=== PATIENT | female | born 2000 ===

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

== ENCOUNTER 2018-01-24 23:15 | Emergency (ER) | payer MEDICAID ==
[2018-01-24 23:15] VITALS: BMI 21.6
[2018-01-24 23:22] VITALS: BP 114/77; PULSE 80; RESP 18; TEMP 97.9; O2SAT 99
--- NOTE | 2018-01-24 23:35 | ED PDOC ---
HPI: General Adult Time Seen by Provider: 01/24/18 23:25 Chief Complaint (Nursing): Dental Pain Chief Complaint (Provider): tongue pain History Per: Patient History/Exam Limitations: no limitations Onset/Duration Of Symptoms: Days (2) Current Symptoms Are (Timing): Still Present Additional Complaint(s): 17 y/o female presents for evaluation of pain to right side of tongue x 2 days. Denies fever, toothache, trauma to tongue, swelling to tongue. No medication taken for relief thus far. Patient also complaining of itching to right arm x 3 days, of which she has been applying hydrocortisone cream. Denies lesions, known allergen.and genital area x 3 days. Patient also complaining of genital itching; requesting cream. Denies discharge , dysuria, hematuria, vaginal bleeding. States her last sexual encounter over 3 months ago. Past Medical History Reviewed: Historical Data, Nursing Documentation, Vital Signs Vital Signs: Last Vital Signs Temp 97.9 F 01/24/18 23:20 Pulse 80 01/24/18 23:20 Resp 18 01/24/18 23:20 BP 114/77 01/24/18 23:20 Pulse Ox 99 01/24/18 23:37 - Medical History PMH: No Chronic Diseases - Surgical History Surgical History: No Surg Hx - Family History Family History: States: Unknown Family Hx, Diabetes - Home Medications Home Medications: Ambulatory Orders Medication Instructions Recorded Acyclovir [Zovirax] 400 mg PO TID 7 Days tablet 07/19/16 Ciprofloxacin HCl [Cipro] 250 mg PO BID #6 tab 07/19/16 Acyclovir [Zovirax] 400 mg PO 5XD #50 tablet 04/27/17 Clindamycin [Cleocin] 300 mg PO TID #21 cap 04/27/17 Fluconazole [Diflucan] 150 mg PO QWK #2 tab 04/27/17 Cetirizine HCl [Zyrtec] 10 mg PO DAILY #7 capsule 01/25/18 Fluconazole [Diflucan] 150 mg PO ONCE #1 tab 01/25/18 Ibuprofen [Motrin Tab] 1 tab PO Q6 PRN #15 tab 01/25/18 - Allergies Allergies/Adverse Reactions: Allergies Allergy/AdvReac Type Severity Reaction Status Date / Time No Known Allergies Allergy Verified 01/24/18 23:19 Review of Systems ROS Statement: Except As Marked, All Systems Reviewed And Found Negative ENT: Positive for: Mouth Pain Genitourinary Female: Positive for: Other (itching) Skin: Positive for: Rash Physical Exam - Reviewed Nursing Documentation Reviewed: Yes Vital Signs Reviewed: Yes - Physical Exam Appears: Positive for: Well, Non-toxic, No Acute Distress Head Exam: Positive for: ATRAUMATIC, NORMAL INSPECTION, NORMOCEPHALIC Skin: Positive for: Normal Color, Rash (patchy dry skin flexor aspect right elbow; no lesions, drainage, temp change noted) Eye Exam: Positive for: Normal appearance ENT: Positive for: Normal ENT Inspection Cardiovascular/Chest: Positive for: Regular Rate, Rhythm Respiratory: Positive for: Normal Breath Sounds Gastrointestinal/Abdominal: Positive for: Normal Exam Pelvic Exam: Positive for: External Exam Normal, Speculum Exam Normal, No Cerv. Motion Tender, Discharge (white), Other (exam sleeve baster Gaviota Kennedy RN). Negative for: Active Bleeding, Blood, Cervicitis Back: Positive for: Normal Inspection Extremity: Positive for: Normal ROM Neurologic/Psych: Positive for: Alert, Oriented (x3) - ECG O2 Sat by Pulse Oximetry: 99 - Progress ED Course And Treament: ibuprofen, benadryl PO, urine, cultures Patient educated on findings, discharged with rx ibuprofen, zyrtec, diflucan Advised to continue cortisone cream for arm Follow up PMD 2-3 days Follow up Ceramic Restorer 2-3 days Return precautions given Disposition - Clinical Impression Clinical Impression: Vulvovaginal candidiasis, Tongue pain, Rash and nonspecific skin eruption - Patient ED Disposition Is Patient to be Admitted: No Counseled Patient/Family Regarding: Studies Performed, Diagnosis, Need For Followup, Rx Given - Disposition Disposition: Routine/Home Disposition Time: 00:16 Condition: IMPROVED Prescriptions: Cetirizine HCl [Zyrtec] 10 mg PO DAILY #7 capsule Fluconazole [Diflucan] 150 mg PO ONCE #1 tab Ibuprofen [Motrin Tab] 1 tab PO Q6 PRN #15 tab PRN Reason: Pain, Moderate (4-7) Instructions: Vulvovaginal Yeast Infection, Dermatitis
[2018-01-25] LABS: SQUAMOUS EPITHIAL 8 /hpf (0-5); URINE BACTERIA OCC (<OCC); URINE BILIRUBIN NEGATIVE (NEGATIVE); URINE BLOOD NEGATIVE (NEGATIVE); URINE CLARITY CLOUDY (Clear); URINE COLOR YELLOW (YELLOW); URINE GLUCOSE (UA) NEG (Normal); URINE LEUKOCYTE ESTERASE SMALL Leu/uL (Negative); URINE PROTEIN 30 mg/dL (NEGATIVE); URINE UROBILINOGEN 0.2-1.0 mg/dL (0.2-1.0)
[2018-01-25] MEDS ORDERED: Fluconazole 150 MG TAB PO STA (00:14)
== END 2018-01-25 00:27 | disposition home or self-care (01) ==
LOC: H.ER 23:15
DX: K14.6 Glossodynia (principal); R21 Rash and other nonspecific skin eruption; B37.3 Candidiasis of vulva and vagina

== ENCOUNTER 2018-07-16 11:00 | Emergency (ER) | payer MEDICAID ==
[2018-07-16 12:52] LABS: BASO % 0.5 % (0.0-2.0); EOS % 0.8 % (0.0-4.0); HEMOGLOBIN 10.7 g/dL (12.0-16.0); LYMPH # 0.9 K/uL (1.0-4.3); LYMPH % 15.5 % (20.0-40.0); MEAN CELL VOLUME 78.9 fl (81.0-99.0); MEAN CORPUSCULAR HEMOGLOBIN 25.3 pg (27.0-31.0); MEAN PLATELET VOLUME 9.1 fl (7.2-11.7); MONO # 0.4 K/uL (0.0-0.8); MONO % 7.8 % (0.0-10.0); NEUT # 4.3 K/uL (1.8-7.0); NEUT % 75.4 % (50.0-75.0); NRBC % 0.1 % (0.0-0.0); RBC 4.22 Mil/uL (3.80-5.20); RED CELL DISTRIBUTION WIDTH 16.1 % (11.5-14.5); WHITE BLOOD COUNT 5.7 K/uL (4.8-10.8)
[2018-07-16 13:02] LABS: ALBUMIN 3.7 g/dL (3.5-5.0); ALT/SGPT 19 U/L (9-52); AST/SGOT 35 U/L (14-36); BLOOD UREA NITROGEN 8 mg/dl (7-17); CALCIUM 8.7 mg/dL (8.4-10.2); GFR NON-AFRICAN AMERICAN > 60
[2018-07-16 13:04] LABS: SQUAMOUS EPITHIAL 79 /hpf (0-5); URINE BACTERIA RARE (<OCC); URINE BILIRUBIN SMALL (NEGATIVE); URINE BLOOD NEGATIVE (NEGATIVE); URINE CLARITY CLOUDY (Clear); URINE COLOR AMBER (YELLOW); URINE GLUCOSE (UA) NEG (NEGATIVE); URINE LEUKOCYTE ESTERASE MOD Leu/uL (Negative); URINE PROTEIN 100 mg/dL (NEGATIVE); URINE UROBILINOGEN 0.2-1.0 mg/dL (0.2-1.0)
--- NOTE | 2018-07-16 14:21 | US ---
Date of service: 07/16/2018 PROCEDURE: Obstetrical , limited. HISTORY: 24 wk IUG no previous U/S COMPARISON: None TECHNIQUE: Standard protocol for this study/examination. FINDINGS: Cephalic presentation. Posterior placenta. No evidence of abruption or previa Gestational age derived from LMP 25 weeks 3 days. KATE 10/26/2018. Gestational age derived from the following biometric parameters 25 weeks 1 day. KATE 10/28/2018 Biparietal diameter 6.12 cm Head circumference 22.76 cm Abdominal circumference 20.50 cm Femur length 4.63 cm Estimated weight 776.8 g Calculated cardiac rate 149 beats per min. Closed cervix measuring 3.43 cm IMPRESSION: Twenty-five weeks 1 day live intrauterine gestation. Gestational concordance documented.
[2018-07-16 19:37] VITALS: BP 97/60; PULSE 97; TEMP 97.4
--- NOTE | 2018-07-17 09:21 | OBHP ---
Datetime: 07/16/2018 11:44 IP Adm Impression: , intrauterine IP Admit Plan: Observation/Evaluation; Discharge home Admit Comment, IP Provider: 17 year old at 24.0 weeks (dated on U/S from [facility]) pr esents with dysuria and diarrhea for 2 days duration. care thus far has been in [facility] rmatory records with patient. Previous was at 35/36 weeks, no further complica tions. As per patient she was told she has genital herpes from her original doctor but all other labs were within normal limits. Endorses good movement. Denies contractions, vaginal bleeding, lazara dorous discharge, leaking of fluid from vagina, fever, headache, new-onset edema, difficulty breathin g and nausea. PMD: n/a - [facility] OBHx: x1 @ 35-36 wks EGA PMH: denies Allergies: denies Meds: denies Surgical Hx: denies Family Hx: denies Labs: as per patient: herpes +, remainder wnl (no lab report available) ROS: all other systems reviewed and negative unless noted in HPI PE: Gen: comfortable, NAD Psych: flat affect, slow to answer, cooperative, pleasant Resp: no respiratory distress CV: RRR Abd: no tenderness to palpation Ext: no edema Skin: no rash Back: bilateral CVA tenderness A+P: 17 year old at 24.0 weeks EGA presents with dysuria and diarrhea for 2 days duration. -NST reassuring -CBC wnl, CMP wnl, UA wnl (contaminated) -OB abdominal U/S: 25.1 week IUP, posterior placenta -ED precautions given -Patient recommended to follow-up with primary OBGYN within 1 week Case seen and discussed with Dr Kerrie Devlin PGY1 Pelvic Type - PN: Not Done Extremities - PN: Normal Abdomen - PN: Normal Back - PN: Normal Breast - PN: Not Done Lungs - PN: Normal Heart - PN: Normal Thyroid - PN: Not Done Neurologic - PN: Normal HEENT - PN: Normal General - PN: Normal EGA AdmitDate IP: 24.0 Vital Signs Provider: Reviewed; Within Normal Limits IP Chief Complaint: Maternal discomfort Genitourinary Exam: Not Done DTRs - PN: Normal
== END 2018-07-16 15:36 | disposition home or self-care (01) ==
LOC: H.EROB2 11:00 → H.EROB 11:53 → H.EROB2 15:36
DX: O26.92 Pregnancy related conditions, unspecified, second trimester (principal); R30.0 Dysuria; R19.7 Diarrhea, unspecified; Z3A.24 24 weeks gestation of pregnancy

== ENCOUNTER 2018-09-10 23:29 | Emergency (ER) | payer MEDICAID ==
[2018-09-11 00:36] VITALS: BMI 32.5
[2018-09-11] MEDS ORDERED: Betamethasone Soluspan 30 mg/5mL Inj Susp IM ONE (00:37)
[2018-09-11 01:50] LABS: HEMOGLOBIN 8.8 g/dL (12.0-16.0); MEAN CELL VOLUME 71.3 fl (81.0-99.0); MEAN CORPUSCULAR HEMOGLOBIN 23.2 pg (27.0-31.0); MEAN CORPUSCULAR HGB CONC 32.6 g/dL (33.0-37.0); RBC 3.78 Mil/uL (3.80-5.20); RED CELL DISTRIBUTION WIDTH 17.3 % (11.5-14.5); WHITE BLOOD COUNT 9.6 K/uL (4.8-10.8)
--- NOTE | 2018-09-11 08:26 | OBADHP ---
Datetime: 09/11/2018 00:17 Admit Comment, IP Provider: 20 33.4wk present to [facility] due vag bleed started tonight, Pt report that vag bleeding started after she had intercours. Pt state bleeding is small amount and have used o ne pad which did not get soaked, otherwise patient denies noting any material, contraction or abd deacon n. Allergy: none PCP: [facility] PMH: none PFH: none PSH: none OBGYN 1 premature VD at 33 wk social: denies smoking drug or use 00:31 Assessment and plan 20 33.4wk present to [facility] due vag bleed started tonight, Pt report that vag bleeding started after she had intercours. Most likely post coital bleed. Vitals WNl strip reasuring, some contraction noted Vaginal examination, no active bleeding cervix close Will do CBC/ Type and screen Start on betamethasone dose YSabri PGY1 Case discussed with Dr Sy Addendum: I saw and examined patient at presentation. Patient with postcoital bleeding. No evidence of act zaheer bleeding on sterile speculum exam, but due to blood in vagina plan to continue observation. Mansi ent without contractions and heart tracing category 1. Patient given first dose of steroids an d will check labs. Plan to check ultrasound and cervical length measurement. Discussed plan with haroldo cleary and all patient questions answered. Kerrie Pelvic Type - PN: Adequate Extremities - PN: Normal Abdomen - PN: Normal Back - PN: Normal Breast - PN: Not Done Lungs - PN: Normal Heart - PN: Normal Thyroid - PN: Normal Neurologic - PN: Normal HEENT - PN: Normal General - PN: Normal FHR - Baseline A Provider: 130 Comments, ACOG Physical Exam: heart no extra heart soun lung clear abd non-tender BS+ Cervix no active bleeding, cervix closed Gestation - Est Wks by US: 33.4 Pool Provider: Negative Vital Signs Provider: Reviewed; Within Normal Limits IP Chief Complaint: Vaginal bleeding NICHD Variability Prov Fetus A: Moderate 6-25bpm NICHD Accel Fetus A IP Provider: 15X15 FHR Category Provider Fetus A: Category I NICHD Decel Fetus A IP Provider: None Dilatation, Provider: 0 Genitourinary Exam: Normal EGA AdmitDate IP: 33.3 IP Adm Impression: , intrauterine IP Admit Plan: Observation/Evaluation Datetime: 07/16/2018 11:44 DTRs - PN: Normal
--- NOTE | 2018-09-11 11:07 | US ---
Date of service: 09/11/2018 PROCEDURE: Limited transvaginal examination HISTORY: vaginal bleed COMPARISON: None TECHNIQUE: Transvaginal pelvic ultrasound was performed. FINDINGS: biophysical profile scoring: breathing movements: 2 movements: 2 tones: 2 Amniotic Fluid: 2 Total score: 8 Single live intrauterine fetus in cephalic presentation. The cervical length measures 4.4 cm. Placenta is posterior. IMPRESSION: biophysical profile score: 8/8.
--- NOTE | 2018-09-11 11:11 | US ---
Date of service: 09/11/2018 PROCEDURE: Limited transvaginal examination HISTORY: vaginal bleeding in COMPARISON: 07/16/2018 TECHNIQUE: Transvaginal pelvic ultrasound was performed. FINDINGS: Single live intrauterine fetus in cephalic presentation. The cervical length is 4.4 cm. IMPRESSION: Cervical length is 4.4 cm.
[2018-09-11 19:48] VITALS: BP 104/60; PULSE 104; RESP 18; TEMP 98; O2SAT 100
== END 2018-09-11 14:21 | disposition home or self-care (01) ==
LOC: H.EROB2 23:29 → H.L&D 09-11 13:06 → H.EROB2 09-11 14:21
DX: O46.93 Antepartum hemorrhage, unspecified, third trimester (principal); Z3A.33 33 weeks gestation of pregnancy
CPT/HCPCS: 76817; 76818; 85027; 86850; 86900; 99283; J0702

== ENCOUNTER 2018-09-12 00:06 | Emergency (ER) | payer MEDICAID ==
[2018-09-11 00:36] VITALS: BMI 32.5
[2018-09-12] MEDS ORDERED: Betamethasone Soluspan 30 mg/5mL Inj Susp IM ONE (00:23)
--- NOTE | 2018-09-12 11:34 | OBHP ---
Datetime: 09/12/2018 00:25 IP Admit Plan: Discharge home (Annotations: Data stored by CPN on behalf of user) Admit Comment, IP Provider: 20 33.5wk return to [facility] for her sec dose of betamethasone, Patient was seen on 09/11/18 due to vag bleeding, Patient received a betamethasone dose and sent home after evaluation and r/o of possible active labor. Today patient have no complain, tolerated medication wit h no s/e. PT denies noting any material, contraction or abd pain. ROS Neg except for if mentioned in HPI Allergy: none PCP: [facility] PMH: none PFH: none PSH: none OBGYN 1 premature VD at 33 wk social: denies smoking drug or use Assessment and plan 20 33.5wk return to [facility] for her sec dose of betamethasone, Patient was seen on 09/11/18 due to vag bleeding. Vitals WNl strip reasuring. Give sec dose of betamethasone Gilma PGY1 Case discussed with Dr Maier. Attending Note: patient Discussed with resident and I agree with the above findings. Plan: Discharge Home Follow up with OB clinic. Bleeding Preautions reviewed Pelvic Type - PN: Not Done Extremities - PN: Normal Abdomen - PN: Normal Back - PN: Not Done Breast - PN: Normal Lungs - PN: Normal Heart - PN: Normal Thyroid - PN: Normal Neurologic - PN: Normal HEENT - PN: Normal General - PN: Normal FHR - Baseline A Provider: 130 Comments, ACOG Physical Exam: Heart No extra heart sound lung clear abdomen BS+ nontender Gestation - Est Wks by US: 33.5 EGA AdmitDate IP: 33.6 Vital Signs Provider: Reviewed; Within Normal Limits IP Chief Complaint: Vaginal bleeding NICHD Variability Prov Fetus A: Moderate 6-25bpm NICHD Accel Fetus A IP Provider: 15X15 NICHD Decel Fetus A IP Provider: None Genitourinary Exam: Normal DTRs - PN: Normal (Annotations: Data stored by CPN on behalf of user)
[2018-09-14 11:32] VITALS: BP 112/62; PULSE 107
== END 2018-09-12 01:11 | disposition home or self-care (01) ==
LOC: H.EROB2 00:06
DX: O09.93 Supervision of high risk pregnancy, unspecified, third trimester (principal); Z3A.33 33 weeks gestation of pregnancy; Z23 Encounter for immunization
CPT/HCPCS: 96372; 99281; J0702